=== PATIENT | male | born 1985 | race American Indian/Alaskan Native ===

== ENCOUNTER 2020-07-12 10:08 | Outpatient (CLI) | payer OTHER ==
--- NOTE | 2020-07-12 11:38 | XRay Report ---
HISTORY:RIGHT KNEE PAIN COMPARISON: None. TECHNIQUE: AP lateral views were obtained FINDINGS: Bones: No fracture or dislocation. Joint spaces: Maintained. Soft tissues: No significant abnormality. Additional findings: None. IMPRESSION: 1. No significant abnormality. Signer Name: Jayden Denton MD Signed: 07/12/2020 11:33 AM Workstation Name: [id number]
--- NOTE | 2020-07-12 11:38 | XRay Report ---
CLINICAL DATA: LEFT SHOULDER PAIN TECHNICAL DATA: AP internal, AP external, and Y views were obtained of the shoulder. FINDINGS: There is no acute fracture. The glenoid fossa humeral head articulation is normal. There is no acromi oclavicular joint widening or offset. The coracoclavicular distance is normal. There are no significa nt degenerative changes. IMPRESSION: No acute radiographic abnormality. Signer Name: Jayden Denton MD Signed: 07/12/2020 11:33 AM Workstation Name: [id number]
== END 2020-07-12 10:09 | disposition home or self-care (01) ==
LOC: XRAY 10:08
DX: M25.561 Pain in right knee (principal); M25.512 Pain in left shoulder